=== PATIENT | female | born 1980 | race Caucasian/White ===

== ENCOUNTER 2024-11-02 06:48 | Emergency (ER) | payer BC ==
[2024-11-02] MEDS ORDERED: Sodium Chloride 0.9% 10 ML Syringe FLUSH PRN (07:13)
[2024-11-02] MEDS: Ketorolac 30 MG/ML SDV IVPUSH ONE (07:32)
[2024-11-02] MEDS: Ondansetron 4 MG/2 ML SDV IVPUSH ONE (07:34)
[2024-11-02 07:39] LABS: MEAN PLATELET VOLUME 7.5 fL (7.1-12.4); PLATELET COUNT,PLT 226 x10(3)uL (151-488); RED BLOOD CELL COUNT 5.02 x10(6)uL (3.60-5.20); RED CELL DISTRIBUTION WIDTH 14.7 % (12.3-16.5); WHITE BLOOD CELL COUNT,WBC 12.4 x10-3/uL (3.0-10.3)
[2024-11-02 07:40] LABS: BLOOD UREA NITROGEN,BUN 8 mg/dL (7-18); CARBON DIOXIDE,CO2 26 mmol/L (21-32); CHLORIDE,CL 104 mmol/L (100-110); CREATININE 0.9 mg/dL (0.55-1.02); EST CRCL DRUG DOSING (CG) 75.45 mL/min; ESTIMATED GFR 81 mL/min (>60); GLUCOSE RANDOM 103 mg/dL (80-116); POTASSIUM,K 3.8 mmol/L (3.5-5.3); SODIUM,NA 140 mmol/L (135-145)
[2024-11-02 07:45] LABS: A/G RATIO 0.7; ALANINE AMINOTRANSFERASE,ALT 27 U/L (12-36); ASPARTATE AMNIOTRANSFERASE,AST 27 IU/L (5-25); BILIRUBIN TOTAL 0.8 mg/dL (0.1-1.3); PROTEIN TOTAL,TP 7.4 g/dL (6.0-8.0)
[2024-11-02 07:49] LABS: LACTIC ACID 1.7 mmol/L (0.4-2.0)
[2024-11-02 08:02] LABS: LYMPHOCYTES PERCENT MAN 7 % (13-37); MONOCYTES PERCENT MAN 1 % (4-12); SEG NEUTROPHILS PERCENT MAN 92 % (46-82)
[2024-11-02 08:57] LABS: GLUCOSE,URINE NORMAL (NORMAL); OCCULT BLOOD,URINE NEGATIVE (NEGATIVE)
[2024-11-02 08:58] LABS: APPEARANCE,URINE TURBID (CLEAR)
== END 2024-11-02 10:36 | disposition home or self-care (01) ==
LOC: FB.ED 06:48
DX: J18.9 Pneumonia, unspecified organism (principal); Z87.891 Personal history of nicotine dependence
CPT/HCPCS: 36415; 71046; 80053; 81003; 83605; 85025; 86140; 87040; 87428-QW; 96361; 96374; 96375; 99284; 99284-25; J0696; J1885; J2405; J7030